=== PATIENT | male | born 1950 | race Caucasian/White ===

== ENCOUNTER → 2022-05-26 15:27 | Outpatient (BNVA) | payer MEDICARE, SELFPAY | PROVIDERS: Family Provider Nurse Practitioner; PCP Nurse Practitioner Family; Visit Provider Internal Medicine Cardiovascular Disease | DX: I25.5 Ischemic cardiomyopathy (principal); I25.10 Atherosclerotic heart disease of native coronary artery without angina pectoris; I10 Essential (primary) hypertension; E78.2 Mixed hyperlipidemia; Z87.891 Personal history of nicotine dependence | CPT/HCPCS: 99214 ==

== ENCOUNTER → 2023-09-27 13:32 | Outpatient (BNVA) | payer MEDICARE, SELFPAY | PROVIDERS: Family Provider Nurse Practitioner; PCP Nurse Practitioner Family; Visit Provider Otolaryngology | DX: H61.23 Impacted cerumen, bilateral (principal); H93.12 Tinnitus, left ear; H90.3 Sensorineural hearing loss, bilateral | CPT/HCPCS: 69210; 99203 ==

== ENCOUNTER → 2023-10-28 10:38 | Outpatient (BNVA) | payer MEDICARE, SELFPAY | PROVIDERS: Family Provider Nurse Practitioner; PCP Nurse Practitioner Family; Visit Provider Internal Medicine Cardiovascular Disease | DX: I25.10 Atherosclerotic heart disease of native coronary artery without angina pectoris (principal); I10 Essential (primary) hypertension; E78.2 Mixed hyperlipidemia; I25.5 Ischemic cardiomyopathy; Z87.891 Personal history of nicotine dependence | CPT/HCPCS: 99213 ==

== ENCOUNTER → 2024-04-09 15:00 | Outpatient (BNVA) | payer MEDICARE, SELFPAY | PROVIDERS: Family Provider Nurse Practitioner; PCP Nurse Practitioner Family; Visit Provider Internal Medicine Cardiovascular Disease | DX: I25.118 Atherosclerotic heart disease of native coronary artery with other forms of angina pectoris (principal); I10 Essential (primary) hypertension; E78.2 Mixed hyperlipidemia; Z87.891 Personal history of nicotine dependence | CPT/HCPCS: 99214 ==

== ENCOUNTER 2024-05-08 07:10 | Outpatient (CLI) | payer MEDICARE, SELFPAY ==
--- NOTE | 2024-05-08 | ECG_ITS ---
The [place] [facility]ellar Test Date: 2024-05-08 Pat Name: Eliseo Eubanks Department: Room: Gender: Male [employer]: : 1950 Requested By: Sarita Bassett Order Number: [id number] Constantin MD: Davie Schumacher M.D. Interpretive Statements EXERCISE MIBI EXERCISE DATA: The patient was exercised by Alexandro protocol. Baseline heart rate was 60 beats per minute. Baseline blood pressure was 141/88 millimeters of mercury. Maximal predicted heart rate was 144 beats per minute. Maximum heart rate achieved was 125 which was 86% of the maximum predicted heart rate. Maximum blood pressure was 176/90millimeters of mercury. Total exercise time was 6 minutes and 32 seconds. Maximum METs achieved was 7. The reason for ending the test was completion of protocol. The patient complained of shortness of breath during the stress test, which then resolved at the end of the test. ELECTROCARDIOGRAM: BASELINE: Showed sinus rhythm, normal axis, non specific ST-T changes at the baseline noted in inferior leads. [] EXERCISE: At the peak exercise level, [] more prominent, 1-2mm ST depressions seen in the inferior leads. [] RECOVERY: During the recovery period, heart rate dropped appropriately. No significant ST-T changes in the recovery suggestive of ischemia noted. [] CONCLUSION: 1. Exercise capacity is fair 2. Heart rate response was appropriate 3. Blood pressure response was appropriate 4. Symptoms not suggestive of ischemia. 5. Electrocardiogram portion of the stress test has borderline significant ST depressions in the inferior leads. Possible ischemia. 6. Nuclear scan will be documented separately. Electronically Signed On 05-14-2024 08:41:15 [employer]ALL UMPIRE by Davie Schumacher M.D. [email or web address]
[2024-05-08 07:57] VITALS: BMI 32.1
--- NOTE | 2024-05-08 08:03 | NMCV_ITS ---
NM nas perf SPECT r/s* [id number] Eliseo Eubanks Age: 74 Gender: M : 1950 Exam Date: 05/08/2024 08:35 Ordering Phys: Sarita Bassett MD ([email or web address]) Technologist: RAMIREZ Loo Exam Location: [facility] Indications: CP STRESS TEST Please see separate stress test report in [facility] for full findings IMAGE PROTOCOL Rest/Stress 1 Exercise Day Radiopharmaceutical Dose (mCi) Administration Site Administered by Rest: Tc-99m 10.9 IV RAMIREZ Loo Sestamibi Stress:Tc-99m 33.0 IV RAMIREZ Nayak Sestamikalyn Rest: 08-May-2024 60 Discovery 630 Stress: 08-May-2024 15 Discovery 630 Radiopharmaceutical was injected at 85 % maximum heart rate. Images obtained in supine and prone position. SPECT RESULTS Technical Quality: Excellent Raw Data Analysis: Normal Image Corrections: No attenuation or motion correction applied Summed Stress Score: 3 Summed Rest Score: 5 Summed Difference Score: 0 PERFUSION FINDINGS Small sized area of fixed perfusion defect is seen in inferior septal and apical inferior gomez. 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 FUNCTIONAL RESULTS (calculated via Gated SPECT) Stress Image LV EF (%): 49 Stress EDV (mL):135 TID: 0.83 Stress ESV (mL):69 FUNCTIONAL FINDINGS: LV systolic function is mildly reduced with EF of 49% IMPRESSIONS 1. 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 No evidence of ischemia 2. LV systolic function is mildly reduced with EF of 49% Davie Schumacher MD (Electronically Signed) Final Date: 09 May 2024 08:02 S
[2024-05-08 09:35] VITALS: BP 176/90; PULSE 73
--- NOTE | 2024-05-08 12:00 | USCV_ITS ---
Eliseo Eubanks Age: 74 Gender: M : 1950 Exam Date: 05/08/2024 11:55 Ordering Phys: Sarita Bassett MD ([email or web address]) Technologist: [place] [facility] [place]: BP: 120 / 70 HR: 50 Rhythm: Sinus Technical Quality: Adequate MEASUREMENTS (Male / Female) Normal Values 2D ECHO LVOT Diameter 2.2 cm LV Ejection Fraction MOD 4C 52.3 % LV Ejection Fraction MOD 2C 58.2 % LV Ejection Fraction 2C AL 57.7 % LA Diameter 4.2 cm RA Systolic Volume 4C AL 49.5 ml RA Systolic Volume 4C MOD 45.9 ml LA Sys Volume AL 62.1 cm cubed LA Sys Volume Index AL 26.7 cm cubed/m squared Aorta at Sinotubular Diameter 2.5 cm M-MODE LA Ao Ratio MM 1.3 AV Cusp Separation MM 2.3 cm DOPPLER AV Peak Velocity 124.0 cm/s LVOT Peak Velocity 103.0 cm/s AV Area Cont Eq vti 3.0 cm squared AV Area Cont Eq pk 3.0 cm squared MV Peak Velocity 82.0 cm/s MV Area PHT 1.7 cm squared Mitral E to A Ratio 1.0 TR Peak Velocity 143.0 cm/s TR Peak Gradient 8.2 mmHg TV Peak E Velocity 72.0 cm/s PV Peak Velocity 107.5 cm/s FINDINGS Left Ventricle Mildly increased left ventricular cavity size. Mildly decreased left ventricular systolic function. Left ventricular ejection fraction is estimated at 50 %. Global left ventricular hypokinesis. Grade I/IV diastolic dysfunction (abnormal relaxation filling pattern), normal to mildly elevated filling pressures. Right Ventricle The right ventricle is normal in size and function. Right Atrium The right atrium is normal in size. Left Atrium Moderately increased left atrial size. Mitral Valve Structurally normal mitral valve. No mitral valve stenosis. Mild to moderate mitral valve regurgitation. Aortic Valve Moderate aortic valve calcification. No aortic valve stenosis. Trace aortic valve regurgitation. Tricuspid Valve Structurally normal tricuspid valve without significant stenosis or regurgitation. Pulmonary artery systolic pressure is normal. Pulmonic Valve Structurally normal pulmonic valve without significant stenosis. There is no pulmonic regurgitation. Pericardium Normal pericardium without effusion. Aorta Normal ascending aorta dimension. IVC The inferior vena cava appears normal. CONCLUSIONS Mildly increased left ventricular cavity size. Mildly decreased left ventricular systolic function. Left ventricular ejection fraction is estimated at 50 %. Global left ventricular hypokinesis. Grade I/IV diastolic dysfunction (abnormal relaxation filling pattern), normal to mildly elevated filling pressures. Moderately increased left atrial size. Structurally normal mitral valve. No mitral valve stenosis. Mild to moderate mitral valve regurgitation. There is no pericardial effusion. Right atrial pressure is around 5 mm of mercury. Sarita Bassett MD (Electronically Signed) Final Date: 14 May 2024 20:43 S
== END 2024-05-08 07:11 | disposition home or self-care (01) ==
PROVIDERS: PCP Nurse Practitioner Family; Visit Provider Internal Medicine Cardiovascular Disease
DX: R07.9 Chest pain, unspecified (principal); R06.02 Shortness of breath; I50.30 Unspecified diastolic (congestive) heart failure; I51.7 Cardiomegaly; I34.0 Nonrheumatic mitral (valve) insufficiency; I70.0 Atherosclerosis of aorta
CPT/HCPCS: 36415; 78452; 93017; 93306; A9500

== ENCOUNTER → 2024-10-08 15:46 | Outpatient (BNVA) | payer MEDICARE, SELFPAY | PROVIDERS: PCP Nurse Practitioner Family; Visit Provider Internal Medicine Cardiovascular Disease | DX: I25.10 Atherosclerotic heart disease of native coronary artery without angina pectoris (principal); I10 Essential (primary) hypertension; E78.2 Mixed hyperlipidemia; Z79.01 Long term (current) use of anticoagulants; Z79.82 Long term (current) use of aspirin; Z95.5 Presence of coronary angioplasty implant and graft; Z87.891 Personal history of nicotine dependence; I25.2 Old myocardial infarction | CPT/HCPCS: 99214 ==